=== PATIENT | female | born 1945 | race Caucasian/White ===

== ENCOUNTER → 2016-12-25 | Outpatient (CLI) | payer OTHER ==
[~2016-12-25] VITALS: Ht 152.4 cm; Wt 62.0 kg
[~2016-12-25] MED LIST: AMLODIPINE BESYL5 MG PO; CAL-CITRATE PL1 EACH PO; CELEBREX200 MG PO; FISH OIL 1,0001 EAC7 PO; FLONASE16 G1 BOTH NARES; FLUCONAZOLE100 MG PO; MECLIZINE HCL25 MG PO; MELATONIN1 MG PO; METOPROLOL TART50 MG PO; METOPROLOL TART75 MG PO; NEXIUM 24HR20 MG PO; NEXIUM40 MG PO; PENTAZOCINE-NA1 EACH PO; SUMATRIPTAN SUC50 MG PO; TOPIRAGEN50 MG PO; VENTOLIN HFA18 GM IH; VITAMIN C1000 MG PO; ZYRTEC10 M2 PO
[2016-12-25 16:18] VITALS: BP 149/71
== END | disposition home or self-care (01) ==
LOC: IVINF 16:00
DX: M81.0 Age-related osteoporosis without current pathological fracture (principal)
CPT/HCPCS: 96365 XE; J3489